=== PATIENT | male | born 1990 | race African-American/Black ===

== ENCOUNTER 2024-07-17 06:41 | Outpatient (REF) | payer OTHER, SELFPAY ==
--- NOTE | ~2024-07-17 | US_ITS ---
CLINICAL HISTORY: RT FLANK PAIN, RUQ PAIN RT CVA TENDERNESS US abdomen complete Comparison: None Findings: The visualized pancreas is normal. The aorta and inferior vena cava are normal caliber. The liver is echogenic compatible with hepatic steatosis. There is no intrahepatic bile duct dilatation. The common duct is 2.2 mm in diameter. The gallbladder is normal. There is no sonographic Kendall sign. The main portal vein is antegrade. The right kidney is 10.1 cm in length. The left kidney is 11.1 cm in length. The spleen is normal. No ascites. IMPRESSION: 1. the liver is echogenic compatible with hepatic steatosis. This document has been electronically signed by: Jairo Storey MD on 07/17/2024 12:50:06
== END 2024-07-17 06:42 | disposition home or self-care (01) ==
LOC: HO.UMASIMG 06:41
PROVIDERS: Visit Provider Family Medicine
DX: R10.9 Unspecified abdominal pain (principal)
CPT/HCPCS: 76700

== ENCOUNTER → 2024-07-17 09:50 | Outpatient (BNV) | payer OTHER, SELFPAY | PROVIDERS: Visit Provider Radiology Diagnostic Radiology | DX: R10.11 Right upper quadrant pain (principal); K76.0 Fatty (change of) liver, not elsewhere classified | CPT/HCPCS: 76700 ==